=== PATIENT | female | born 1960 | race Caucasian/White ===

== ENCOUNTER 2017-12-28 14:48 | Outpatient (CLI) | payer BC | END 2017-12-28 14:49 | disposition home or self-care (01) | LOC: DTY/OP 14:48 | PROVIDERS: ATTEND Surgery | DX: E66.01 Morbid (severe) obesity due to excess calories (principal); E11.65 Type 2 diabetes mellitus with hyperglycemia; I10 Essential (primary) hypertension | CPT/HCPCS: 97802 ==

== ENCOUNTER 2018-06-27 14:54 | Outpatient (CLI) | payer BC ==
[2018-06-27 16:18] LABS: BHCG - Serum Negative (NEGATIVE); Pregs Control Background? CLEAR/WHITE (CLR/WHITE); Pregs Control Bar Appear? YES (CONTROL BAR)
[2018-06-27 16:26] LABS: #Eosinphils 0.1 thou/uL (0.0-0.7); #Lymphocytes 2.6 thou/uL (1.20-3.40); #Monocytes 0.6 thou/uL (0.11-0.59); #Neutrophils 4.2 thou/uL (1.40-6.50); %Basophils 0.4 % (0.0-1.0); %Eosinophils 1.9 % (0.0-10.0); %Lymphocytes 34.1 % (21.0-51.0); %Monocytes 7.8 % (0.0-10.0); %Neutrophils 55.8 % (42.0-75.0); Hemoglobin 14.5 g/dL (12.0-16.0); Mean Corpuscular Hemoglobin 30.8 pg (27.0-31.0); Mean Corpuscular Volume 93.4 fL (78.0-98.0); Mean Platelet Volume 8.9 fL (7.4-10.4); Platelet Count 242 thou/uL (130-400); RBC Distribution Width 11.7 % (11.5-14.5); Red Blood Cell (RBC) Count 4.72 mill/uL (4.20-5.40); White Blood Cell (WBC) Count 7.5 thou/uL (4.8-10.8)
[2018-06-27 16:34] LABS: ALT (SGPT) 97 U/L (8-55); AST (SGOT) 52 U/L (5-34); Albumin 4.7 g/dL (3.5-5.0); Alkaline Phosphatase 75 U/L (40-150); Anion Gap 13 mmol/L (10-20); BUN (Urea Nitrogen) 10 mg/dL (9.8-20.1); Bilirubin, Direct 0.3 mg/dL (0.1-0.3); Bilirubin, Total 0.5 mg/dL (0.2-1.2); Calc. Creatinine Clearance 0 mL/min (70-130); Carbon Dioxide 26 mmol/L (22-29); Chloride 102 mmol/L (98-107); Estimated GFR-MDRD 74; Globulin 3.9 g/dL (2.4-3.5); Glucose 120 mg/dL (70-105); Potassium 3.7 mmol/L (3.5-5.1); Protein, Total 8.6 g/dL (6.0-8.3); Sodium 137 mmol/L (136-145)
[2018-06-27 16:42] LABS: Hemoglobin A1c 6.8 % (4.0-6.0)
--- NOTE | 2018-06-28 17:04 | EKG ---
Test Reason : Blood Pressure : / mmHG Vent. Rate : 091 BPM Atrial Rate : 091 BPM P-R Int : 150 ms QRS Dur : 090 ms QT Int : 356 ms P-R-T Axes : 073 063 027 degrees QTc Int : 437 ms Normal sinus rhythm Normal ECG When compared with ECG of 20-DEC-2000 09:08, No significant change was found Confirmed by JOHN LOPEZ ([id number]) on 06/28/2018 5:03:50 PM Referred By: ASYA Confirmed By:JOHN LOPEZ
== END 2018-06-27 14:55 | disposition home or self-care (01) ==
LOC: LABBT 14:54
PROVIDERS: ATTEND Surgery
DX: Z01.818 Encounter for other preprocedural examination (principal); E66.01 Morbid (severe) obesity due to excess calories
CPT/HCPCS: 80053; 80076; 83036; 84703; 85025; 93005; 93010

== ENCOUNTER 2018-06-27 15:00 | Inpatient (IN) | payer BC ==
[2018-06-27 15:48] VITALS: BMI 48.6
[2018-06-30] MEDS ORDERED: CEFAZOLIN 2 GM/50 ML BAG ONE (09:38)
[2018-06-30] MEDS ORDERED: Heparin 5,000 UNITS/ML VIAL ONE (09:39)
--- NOTE | 2018-06-30 10:09 | RAD ---
PORTABLE CHEST ONE VIEW: Date: 06-30-18 Time: 9:37 a.m. History: Pre-operative evaluation. FINDINGS: The heart size is borderline. The lungs are expanded without focal areas of consolidation, pneumothor ax, long pulmonary edema or pleural effusions. IMPRESSION: No acute process. POS: PRASADH
[2018-06-30] MEDS ORDERED: Midazolam HCl 2 mg/2 ml Vial ONE (10:24)
[2018-06-30] MEDS ORDERED: Fentanyl 100 MCG/2 ML VIAL ONE ×4 (10:31→14:34)
[2018-06-30] MEDS ORDERED: Bupivacaine/Epinephrine 0.25% 30 ML VIAL ONE ×2 (10:43→10:44)
[2018-06-30] MEDS ORDERED: Fentanyl 250 MCG/5 ML VIAL ONE (11:26)
[2018-06-30] MEDS ORDERED: Scopolamine 1.5 mg/72 hour Patch ONE (11:52)
[2018-06-30] MEDS ORDERED: Ondansetron HCl/PF 4 MG/2 ML Vial IVP PRN (13:00)
[2018-06-30] MEDS ORDERED: Promethazine HCl 25 MG/ML VIAL IM PRN ×3 (13:00→17:33)
[2018-06-30] MEDS ORDERED: Promethazine HCl 25 MG/ML VIAL SLOW IVP PRN (13:00)
[2018-06-30] MEDS ORDERED: hydrALAZINE 20 MG/ML VIAL ONE (13:26)
[2018-06-30] MEDS ORDERED: fentaNYL Citrate/PF 2,000 MCG in Sodium Chloride 0.9% 60 ML IV PRN (15:03)
[2018-06-30] MEDS ORDERED: diphenhydrAMINE 50 MG/ML VIAL IM PRN (15:03)
[2018-06-30] MEDS ORDERED: diphenhydrAMINE 50 MG/ML VIAL IVP PRN ×2 (15:03→17:33)
[2018-06-30] MEDS ORDERED: diphenhydrAMINE 25 MG CAP PO PRN (15:03)
[2018-06-30] MEDS ORDERED: Zolpidem Tartrate 5 MG TAB PO PRN (15:03)
[2018-06-30] MEDS ORDERED: Naloxone HCl 0.4 mg/ml Vial IV PRN (15:03)
[2018-06-30] MEDS ORDERED: Communication Order-Pharmacy FS SCH (15:15)
[2018-06-30] MEDS ORDERED: Lidocaine 1% PF 5 ML VIAL ONE (16:44)
[2018-06-30] MEDS ORDERED: PROPOFOL 200 MG/20 ML VIAL ONE (16:44)
[2018-06-30] MEDS ORDERED: Glycopyrrolate 0.2 MG/ML 5 ML SYRINGE ONE (16:44)
[2018-06-30] MEDS ORDERED: Dextrose 5% in Water 1,000 ML IV PRN (17:33)
[2018-06-30] MEDS ORDERED: Hydrocodone-Acetamin 15 ML UDCUP PO PRN (17:33)
[2018-06-30] MEDS ORDERED: hydrALAZINE 20 MG/ML VIAL SLOW IVP PRN (17:33)
[2018-06-30] MEDS ORDERED: HumaLOG 300 UNITS/3 ML VIAL SC PRN (17:33)
[2018-06-30] MEDS ORDERED: Dextrose 50% Abboject 50 ML SYRINGE SLOW IVP PRN (17:33)
[2018-06-30] MEDS ORDERED: Ondansetron PF 4 MG/2 ML Vial IVP PRN (17:33)
[2018-06-30] MEDS: Sodium Chloride 0.9% 1,000 ML IV SCH (18:03)
[2018-06-30] MEDS: Acetaminophen 1,000 MG in Premix Bag 1 BAG IVPB SCH (18:04)
[2018-06-30] MEDS ORDERED: Enoxaparin Sodium 40 MG/0.4 ML SYRINGE SC SCH (21:00)
[2018-07-01] MEDS: Acetaminophen 1,000 MG in Premix Bag 1 BAG IVPB SCH ×3 (00:51→12:19)
[2018-07-01] MEDS: Ondansetron PF 4 MG/2 ML Vial IVP PRN ×2 (02:01→10:41)
[2018-07-01] MEDS: Sodium Chloride 0.9% 1,000 ML IV SCH ×3 (02:17→11:41)
[2018-07-01] MEDS ORDERED: Pantoprazole 40 MG VIAL IVP SCH (09:00)
[2018-07-01 09:02] LABS: #Lymphocytes 2.2 thou/uL (1.20-3.40); #Monocytes 0.9 thou/uL (0.11-0.59); #Neutrophils 7.5 thou/uL (1.40-6.50); %Basophils 0.2 % (0.0-1.0); %Eosinophils 0.3 % (0.0-10.0); %Monocytes 8.1 % (0.0-10.0); %Neutrophils 70.5 % (42.0-75.0); Hemoglobin 11.7 g/dL (12.0-16.0); Mean Corpuscular HGB CONC 33.5 g/dL (32.0-36.0); Mean Corpuscular Hemoglobin 31.7 pg (27.0-31.0); Mean Corpuscular Volume 94.5 fL (78.0-98.0); Mean Platelet Volume 8.7 fL (7.4-10.4); Platelet Count 214 thou/uL (130-400); RBC Distribution Width 11.6 % (11.5-14.5); Red Blood Cell (RBC) Count 3.69 mill/uL (4.20-5.40); White Blood Cell (WBC) Count 10.6 thou/uL (4.8-10.8)
[2018-07-01 09:20] LABS: Anion Gap 13 mmol/L (10-20); BUN (Urea Nitrogen) 7 mg/dL (9.8-20.1); Calc. Creatinine Clearance 147 mL/min (70-130); Carbon Dioxide 26 mmol/L (22-29); Chloride 103 mmol/L (98-107); Estimated GFR-MDRD 78; Glucose 114 mg/dL (70-105); Sodium 138 mmol/L (136-145)
[2018-07-01] MEDS ORDERED: Hydrocodone-Acetamin 15 ML UDCUP PO PRN (09:33)
--- NOTE | 2018-07-01 10:24 | DIS ---
DATE OF ADMISSION: 06/30/2018 DATE OF DISCHARGE: 07/01/2018 ADMISSION DIAGNOSES: Morbid obesity, diabetes mellitus, and hypertension. DISCHARGE DIAGNOSES: Morbid obesity, diabetes mellitus, and hypertension. PROCEDURE: Laparoscopic sleeve gastrectomy by Dr. Romero without complication. CONDITION ON DISCHARGE: Improved. STAFF: Dr. Romero. HOSPITAL COURSE: On postop day #1, the patient is ambulatory. She is tolerating a clear liquid diet without difficulty. Her wounds are clear. Her pain is controlled. She is being discharged home. Prescriptions already sent over to her pharmacy. She is going to hold her metformin for first few weeks after surgery. She will follow up with me in 2 weeks. Job ID: [id number]
[2018-07-01 12:38] VITALS: BP 164/85; TEMP 98.7
--- NOTE | 2018-07-01 13:24 | OP ---
DATE OF PROCEDURE: 06/30/2018 PREOPERATIVE DIAGNOSES: 1. Morbid obesity with a body mass index of 52. 2. Type 2 diabetes. 3. Hypertension. POSTOPERATIVE DIAGNOSES: 1. Morbid obesity with a body mass index of 52. 2. Type 2 diabetes. 3. Hypertension. PROCEDURES PERFORMED: Laparoscopic sleeve gastrectomy with Battiest staple line reinforcements and 38-[place] bougie. ANESTHESIA: General. ESTIMATED BLOOD LOSS: Minimal. COMPLICATION: None. SPECIMEN: Stomach. FINDINGS: Normal postoperative EGD. DESCRIPTION OF PROCEDURE: The patient was taken to the operating room and laid supine on the operating room table. After general anesthetic was obtained, the arms and legs were double strapped to bariatric table. OG tube was used to decompress the stomach. The abdomen was prepped and draped in a sterile fashion. Left subcostal 5-mm Optiview trocar was placed in the usual fashion and high-flow pneumoperitoneum was obtained. Left and right abdominal 12 mm ports as well as right subcostal 5 mm port were placed under direct visualization. A 5-mm incision was made at the xiphoid and the Laurent was used to raise the liver off the GE junction. Short gastrics were taken down to mid body of stomach to left ileana of the diaphragm. Left ileana, posterior fundus, and angle of His were completely dissected. The short gastrics were taken down to a distance of 6 cm proximal to the pylorus. Multiple loads of the [place] stapling device were used to perform the sleeve. The first was fired up at a distance of 6 cm proximal to the pylorus, angled up towards the incisura. A 38-[place] bougie had been brought in, its tip left in the antrum of the stomach. Care was taken to avoid being too close to the incisura. Multiple loads were then fired up along the bougie. Stomach was completely transected at the angle of His. The stomach was removed from the left abdominal incision. This fascial defect was closed using GraNee needle 0 Vicryl tie. All port sites were infiltrated using local anesthetic. The bougie was removed and the EGD scope was passed through esophagus and stomach to the level of duodenum without obstruction. There was no stricture at the incisura. There was no evidence of air leakage or bleeding. The EGD scope was used to decompress the stomach, it was pulled and removed. The Laurent retractor was removed under direct visualization without bleeding. All ports were removed under direct visualization without bleeding and pneumoperitoneum was let down. The Vicryl was used to close the passage of defect from the left abdominal incisions. All incisions were irrigated and closed using 4-0 Monocryl and Dermabond. The patient was sent to Recovery in stable condition. All instrument counts, needle counts, and lap counts were correct. Job ID: [id number]
== END 2018-07-01 14:00 | disposition home or self-care (01) | DRG 621 ==
LOC: SURG A 06-30 07:39 → EDSTATUS 06-30 15:00 → SURG A 06-30 17:23
PROVIDERS: ADMIT Surgery; ATTEND Surgery
PROC: 0DB64Z3 Excision of Stomach, Percutaneous Endoscopic Approach, Vertical (ICD-10-PCS; principal; 2018-06-30)
PROC: 0DJ08ZZ Inspection of Upper Intestinal Tract, Via Natural or Artificial Opening Endoscopic (ICD-10-PCS; 2018-06-30)
DX: E66.01 Morbid (severe) obesity due to excess calories (principal); E11.9 Type 2 diabetes mellitus without complications; I10 Essential (primary) hypertension; Z68.43 Body mass index [BMI] 50.0-59.9, adult; Z79.84 Long term (current) use of oral hypoglycemic drugs
CPT/HCPCS: 36415; 36416; 71045; 80048; 80053; 80076; 83036; 84703; 85025; 88307; 88312; 93005; 93010; C9113; J0131; J0360; J1200; J1644; J1650; J2250; J2405; J3010; J7050

== ENCOUNTER 2024-06-22 18:26 | Emergency (ER) | payer BC ==
[2024-06-22] MEDS ORDERED: Ketorolac Tromethamine 30 MG (1 mL) VIAL ONE (19:15)
== END 2024-06-22 20:27 | disposition home or self-care (01) ==
LOC: ERS 18:26
DX: M25.562 Pain in left knee (principal); M25.572 Pain in left ankle and joints of left foot; I10 Essential (primary) hypertension; E11.9 Type 2 diabetes mellitus without complications; E03.9 Hypothyroidism, unspecified; W18.30XA Fall on same level, unspecified, initial encounter; Z55.0 Illiteracy and low-level literacy; Z86.718 Personal history of other venous thrombosis and embolism; Z79.899 Other long term (current) drug therapy
CPT/HCPCS: 96372; 99283; J1885